=== PATIENT | male | born 2000 | race Caucasian/White ===

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

== ENCOUNTER 2019-10-29 10:01 | Day surgery (SDC) | payer MEDICAID ==
[2019-10-26 17:38] LABS: APPEARANCE,URINE CLEAR; BILIRUBIN,URINE NEGATIVE (NEGATIVE); COLOR,URINE YELLOW; GLUCOSE, URINE NEGATIVE (NEGATIVE); KETONES,URINE NEGATIVE (NEGATIVE); LEUKOCYTE ESTERASE,URINE NEGATIVE (NEGATIVE); NITRITE,URINE NEGATIVE (NEGATIVE); PROTEIN,URINE NEGATIVE (NEGATIVE); URINE SPECIFIC GRAVITY 1.021; UROBILINOGEN,URINE NEGATIVE mg/dL (<2.0)
[2019-10-26 17:44] LABS: ABSOLUTE EOSINOPHILS # (AUTO) 0.1 10^3/uL (0.0-0.6); ABSOLUTE LYMPHOCYTES (AUTO) 2.1 10^3/uL (0.5-4.7); ABSOLUTE MONOCYTES (AUTO) 0.3 10^3/uL (0.1-1.4); BASOPHILS % (AUTO) 0.5 % (0-2); EOSINOPHILS % (AUTO) 1.1 % (0-6); HEMATOCRIT 43.2 % (37.9-51.0); LYMPHOCYTES % (AUTO) 46.6 % (13-45); MEAN CORPUSCULAR HEMOGLOBIN 30.6 pg (27.0-33.4); MEAN CORPUSCULAR HGB CONC 34.7 g/dL (32.0-36.0); MEAN CORPUSCULAR VOLUME 88 fl (80-97); MONOCYTES % (AUTO) 7.4 % (3-13); PLATELET COUNT 254 10^3/uL (150-450); RED CELL DISTRIBUTION WIDTH 13.4 % (11.5-14.0); SEGMENTED NEUTROPHILS % (AUTO) 44.4 % (42-78); TOTAL CELLS COUNTED % (AUTO) 100 %; WHITE BLOOD COUNT 4.5 10^3/uL (4.0-10.5)
[2019-10-26 18:03] LABS: ANION GAP 11 (5-19); BLOOD UREA NITROGEN 14 mg/dL (7-20); CALCIUM 9.6 mg/dL (8.4-10.2); CARBON DIOXIDE 30 mmol/L (22-30); CHLORIDE 97 mmol/L (98-107); GLUCOSE 92 mg/dL (75-110); POTASSIUM 4.2 mmol/L (3.6-5.0)
[~2019-10-29 10:01] MED LIST: DEXAMETHASONE SOD PHOSPHATE INJ 4 MG/1 ML VIAL ONE; FENTANYL CITRATE INJ/PF 100 MCG/2 ML AMPUL ONE; MIDAZOLAM 2 MG/2 ML INJ ONE; ONDANSETRON HCL INJ/PF 4 MG/2 ML SDV ONE; PROPOFOL INJ 200 MG/20 ML VIAL IV ONE
[2019-10-29] MEDS ORDERED: CEFAZOLIN 2 GM/D5W RTU 2 GM/50 ML RTUPB IV ONE (10:35)
[2019-10-29] MEDS ORDERED: BUPIVACAINE HCL 0.5 % INJ/PF 30 ML SDV ONE (11:48)
[2019-10-29] MEDS ORDERED: MEPERIDINE HCL/PF INJ 25 MG/1 ML DISP.SYRIN IV PRN (13:31)
[2019-10-29] MEDS ORDERED: DIPHENHYDRAMINE HCL 50 MG/ML VIAL IV PRN (13:31)
[2019-10-29] MEDS ORDERED: MORPHINE SULFATE 10 MG/ML INJ IV PRN (13:31)
[2019-10-29] MEDS ORDERED: FENTANYL CITRATE INJ/PF 100 MCG/2 ML AMPUL IV PRN ×3 (13:31)
[2019-10-29] MEDS ORDERED: PROMETHAZINE HCL INJ 25 MG/1 ML VIAL IV PRN ×2 (13:31)
[2019-10-29] MEDS ORDERED: OXYCODONE-ACETAMINOPHEN 5-325 MG TABLET PO PRN (13:39)
[2019-10-29] MEDS ORDERED: ONDANSETRON HCL INJ/PF 4 MG/2 ML SDV IV PRN (13:39)
--- NOTE | 2019-10-29 13:39 | Operative Report ---
Operative Report DATE OF SURGERY: 10/29/19 PREOPERATIVE DIAGNOSIS: Right 4th metacarpal shaft fracture. Right 5th CMC dis location POSTOPERATIVE DIAGNOSIS: Same OPERATION: Open reduction internal fixation right fourth metacarpal shaft fracture. Close reduction internal fixation right fifth CMC joint dislocation SURGEON: [place] VU ANESTHESIA: GA COMPLICATIONS: None ESTIMATED BLOOD LOSS: Minimal PROCEDURE: Indication for above procedure: 19-year-old male who sustained injury to his right hand when he attempted to punch a immobile object. Patient had notable pain and deformity. Was seen at outside hospital where he was placed in a splint and told he needed surgery. Patient follow-up with me at which point we discussed treatment options including operative versus nonoperative intervention of discussing risks and benefits decision was made to proceed with operative treatment. Procedure In Detail: Patient was seen and evaluated in the preoperative holding area. The RIGHT upper extremity was initialized and marked. Patient received 2g of Ancef IV for bacterial prophylaxis. Patient was taken back to the operative room where transferred to the operative table and placed under general anesthesia. Once they were adequately anesthetized a nonsterile tourniquet was placed on the upper extremity. A surgical team debriefing was performed ensuring all instrumentation was available, the surgical procedure was discussed with possible concerns reviewed. The upper extremity was prepped with chlorhexidine and alcohol and draped in a sterile fashion. A timeout was done identifying correct patient, procedure and extremity everyone in attendance agree with this and verbalized no concerns. The extremity was exsanguinated the tourniquet was inflated to 250 mmHg. Longitudinal skin incision was made over the fourth MCP joint. Blunt dissection was performed. Longitudinal incision was made within the extensor tendon to expose the metacarpal head. K wire for the Edi 3.5 mm headless compression screws was utilized the transverse fracture of the fourth metacarpal shaft was then reduced correcting displacement, shortening and rotational malalignment. Screw measured 40 mm thus a 40 mm x 3.5 mm headless compression screw was placed across the fracture site. There is no evidence of malrotation at completion of placement. Wound was then copiously irrigated with normal saline. Extensor tendon was closed with interrupted 3-0 Vicryl suture. Skin was closed with subcuticular 4-0 Monocryl reinforced with Dermabond and Steri-Strips. Attention then turned to the fifth CMC joint dislocation. Once the fracture was reduced it did spontaneously reduce the fifth CMC joint however there was residual instability. Decision was then made to proceed with fixation with a 0.045 K wire. 0.045 K wire was placed obliquely across the fifth metacarpal base and into the hamate. C arm fluoroscopy was obtained confirming anatomic reduction of the fifth CMC joint. Small avulsion of the dorsal hamate was identified but outside the articular surface. The K wire was then bent and cut. Final C arm fluoroscopy was obtained confirming reduction of the fourth metacarpal shaft fracture and fifth CMC joint. Wound was then dressed with Xeroform. 20 cc of 0.5% Marcaine was injected for postoperative pain control. Patient was then placed in a ulnar gutter splint with the IP joints free. Sponge counts, instrument counts, needle counts were correct. Patient was then awoken from anesthesia. Transferred from the operating room table to the operating room stretcher. There was no intraoperative complications patient tolerated procedure well stable to PACU. Sponge counts, instrument counts, needle counts were correct. Patient was then awoken from anesthesia. Transferred from the operating room table to the operating room stretcher. There was no intraoperative complications patient tolerated procedure well stable to PACU. Postop plan: Patient follow in the office in 2 weeks we will obtain radiographs and transition to a cast. Pin will be removed 5-6 weeks postoperatively.
[2019-10-29] MEDS ORDERED: OXYCODONE-ACETAMINOPHEN 5-325 MG TABLET ONE (14:19)
[2019-10-29 15:54] VITALS: BP 123/72
--- NOTE | 2019-10-29 16:13 | RADIOLOGY REPORT (SQ) ---
EXAM DESCRIPTION: NO CHG FLUORO; HAND RIGHT 2 VIEWS IMAGES COMPLETED DATE/TIME: 10/29/2019 1:55 pm REASON FOR STUDY: ORIF RIGHT HAND ASSISTED WITH FLUORO IN OR S62.324A DISP FX OF SHAFT OF FOURTH ME TACARPAL BONE, RIGHT H S63.054A DISLOCATION OF OTH CARPOMETACARPAL JOINT OF RIGHT H COMPARISON: None. FLUOROSCOPY TIME: 18 seconds 5 images saved to PACS. TECHNIQUE: Intra-operative images acquired during surgical procedure to evaluate progress. NUMBER OF IMAGES: 5 LIMITATIONS: None. FINDINGS: Patient undergoing operative intervention with percutaneous wire traversing the 5th carpom etacarpal articulation. Correlate with operative note. IMPRESSION: IMAGE(S) OBTAINED DURING PROCEDURE. COMMENT: Quality ID [id number]: Final reports for procedures using fluoroscopy that document radiation exp osure indices, or exposure time and number of fluorographic images (if radiation exposure indices are not available) Please consult full operative report of the attending physician for description of the procedure. TECHNICAL DOCUMENTATION: JOB ID: [id number] 2010 [employer]- All Rights Reserved Reading location - IP/workstation name: [email or web address]
--- NOTE | 2019-10-29 16:13 | RADIOLOGY REPORT (SQ) ---
EXAM DESCRIPTION: NO CHG FLUORO; HAND RIGHT 2 VIEWS IMAGES COMPLETED DATE/TIME: 10/29/2019 1:55 pm REASON FOR STUDY: ORIF RIGHT HAND ASSISTED WITH FLUORO IN OR S62.324A DISP FX OF SHAFT OF FOURTH ME TACARPAL BONE, RIGHT H S63.054A DISLOCATION OF OTH CARPOMETACARPAL JOINT OF RIGHT H COMPARISON: None. FLUOROSCOPY TIME: 18 seconds 5 images saved to PACS. TECHNIQUE: Intra-operative images acquired during surgical procedure to evaluate progress. NUMBER OF IMAGES: 5 LIMITATIONS: None. FINDINGS: Patient undergoing operative intervention with percutaneous wire traversing the 5th carpom etacarpal articulation. Correlate with operative note. IMPRESSION: IMAGE(S) OBTAINED DURING PROCEDURE. COMMENT: Quality ID [id number]: Final reports for procedures using fluoroscopy that document radiation exp osure indices, or exposure time and number of fluorographic images (if radiation exposure indices are not available) Please consult full operative report of the attending physician for description of the procedure. TECHNICAL DOCUMENTATION: JOB ID: [id number] 2010 [employer]- All Rights Reserved Reading location - IP/workstation name: [email or web address]
--- NOTE | 2019-11-02 14:12 | Discharge Summary ---
Discharge Summary (SDC) - Discharge Final Diagnosis: Right fourth metacarpal shaft fracture Right fifth CMC joint dislocation Date of Surgery: 10/29/19 Discharge Date: 10/29/19 Condition: Good Treatment or Instructions: Schedule Follow Up w/ Dr. Abiodun Riley @ [facility] for Surgery to be seen in 10-14 days or as scheduled [place]: [place]: [place]: Ice and elevate Keep splint clean/dry/intact, do not remove. If your fingers become numb please unwrap the Matthew wrap but leave the splint in place, if the sensation does not return within 30 minutes please return to the emergency department. May begin finger range of motion attempting to make full fist. Please use ibuprofen (Motrin or Advil) 600-800 mg every 8 hours as needed for pain or fever DO NOT TAKE w/ TORADOL may use once TORADOL complete. You may also use acetaminophen (Tylenol) 1000 mg every 4-6 hours as needed for pain or fever. Please be aware that many medications contain acetaminophen, do not exceed a total of 1000 mg of acetaminophen every 6 hours. If ibuprofen and acetaminophen are not sufficient for your pain you may take the Percocet/[place]. Please be aware that the Percocet/[place] does contain Tylenol. Stool softener of choice when on pain medication. USE OF ENGU-KUZ-VUBBLYD IBUPROFEN: Ibuprofen (Advil, Nuprin, Medipren, Motrin IB) is a medication for fever and pain control. In addition, it has anti- inflammatory effects which may be beneficial, especially in the treatment of injuries. It's best to take ibuprofen with food. Persons with ulcer disease or allergy to aspirin should notify their physician of this before taking ibuprofen. Ibuprofen can be given every four to six hours, for a total of four doses daily. Age Pain or fever dose Antiinflammatory dose 6-8 yr 200 mg (1 tab) 200 mg (1 tab) 9-11 yr 200 mg (1 tab) 200-400 mg (1-2 tab) 11-14 yr 200-400 mg (1-2 tab) 400 mg (2 tab) 15-adult 400 mg (2 tab) 600 mg (3 tab) ORAL NARCOTIC MEDICATION: You have been given a prescription for pain control. This medication is a narcotic. It's best taken with food, as nausea can result if taken on an empty stomach. Don't operate machinery or drive within six hours of taking this medication. Do not combine this medicine with alcohol, or with any medication which can cause sedation (such as cold tablets or sleeping pills) unless you get permission from the physician. Narcotics tend to cause constipation. If possible, drink plenty of fluids and eat a diet high in fiber and fruits. Please be aware that prescription narcotics also have the potential for abuse. People become addicted to these medications because of the general sense of wellbeing that they induce. This feeling along with a significant reduction in tension, anxiety, and aggression provides a stimulating seductive quality to these drugs. Once your pain is under control, we encourage you to discard your unused narcotics. Prescriptions: Ketorolac Tromethamine [Toradol 10 mg Tablet] 10 mg PO Q8HP PRN #12 tablet PRN Reason: Oxycodone HCl/Acetaminophen [Percocet 5-325 mg Tablet] 1 tab PO Q6 PRN #25 tablet PRN Reason: Referrals: OMAYRA MARLOW PA-C [Primary Care Provider] - Discharge Diet: As Tolerated Respiratory Treatments at Home: Deep Breathing/Coughing, Incentive Spirometer Report the Following to Your Physician Immediately: Increase in Pain, Fever over 101 Degrees, Unusual Bleeding, Swelling, Warmth
== END 2019-10-29 15:25 | disposition home or self-care (01) ==
LOC: OROUT 10:01
PROVIDERS: ATTEND Orthopaedic Surgery
DX: S62.324A Displaced fracture of shaft of fourth metacarpal bone, right hand, initial encounter for closed fracture (principal); S63.054A Dislocation of other carpometacarpal joint of right hand, initial encounter; S69.91XA Unspecified injury of right wrist, hand and finger(s), initial encounter; W22.09XA Striking against other stationary object, initial encounter; Z03.818 Encounter for observation for suspected exposure to other biological agents ruled out
CPT/HCPCS: 36415; 85025; 87635; 80048; 81001; 73120; 01830; 26615; 26675; C1713 ×4; J2250; J3490; J1100; J3010; J2405; J2704; J0690; C9803